=== PATIENT | female | born 1945 | race Hispanic/Latino ===

== ENCOUNTER 2018-08-10 10:02 | Inpatient (IN) | payer MEDICARE, MEDICAID ==
[2018-08-10 10:03] VITALS: BMI 39.4
[2018-08-10] MEDS ORDERED: Iohexol 240 (50 ml) PO ONE (10:32)
--- NOTE | 2018-08-10 10:35 | ED PDOC ---
HPI: Abdomen Time Seen by Provider: 08/10/18 10:19 Chief Complaint (Nursing): Abdominal Pain Chief Complaint (Provider): Abdominal pain History Per: Patient Additional Complaint(s): 73 yo female with a PMH of HTN, DM, Hyperlipidemia, Asthma, Gout, S/p lumbar laminectomy with L4/L5 fusion presents to ED with multiple somatic complaints. Pt reports difficulty urinating for 5-6 days. denies dysuria; however, reports dark, foul-smelling urine. No fever or chills. Pt also admits to 1 week of constipation. Notes training excessivly and hard stools. no melena or BRBPR. Lastly, Pt also c.o pain to right shoulder and b/l knees that increases with touch and movement for more than 6 months. PMD: Dr. Hernandez Past Medical History Reviewed: Historical Data, Nursing Documentation, Vital Signs Vital Signs: Last Vital Signs Temp 98.8 F 08/10/18 10:05 Pulse 98 H 08/10/18 10:05 Resp 20 08/10/18 10:05 BP 133/72 08/10/18 10:05 Pulse Ox 95 08/10/18 10:05 - Medical History PMH: Arthritis, Asthma, Back Problems, Bronchitis, COPD, Depression, Diabetes (Type II), Fractures (ankle), Gall Bladder Disease (gallstones removal), GERD, HTN, Hypercholesterolemia, Hypothyroidism, Pneumonia Denies: Alzheimer's Disease, Atrial Fibrillation, Cardia Arrhythmia, CHF, Crohn's Disease, Dementia, Diverticulitis, Emphysema, Gastritis, HIV, Kidney Stones, Migraine, Mitral Valve Prolapse, Multiple Sclerosis, Osteoporosis, Pancreatitis, Parkinson's Disease, Peripheral Edema, Pulmonary Embolism, Chronic Kidney Disease, Rheumatoid Arthritis, Seizures, Sleep Apnea, TIA - Surgical History Surgical History: Back Surgery (laminectomy 2 months [employer]), Cholecystectomy, C- Section Denies: Pacemaker - Family History Family History: States: Unknown Family Hx - Living Arrangements Living Arrangements: With Family - Social History Current smoker - smoking cessation education provided: No Alcohol: None Drugs: Denies - Home Medications Home Medications: Ambulatory Orders Medication Instructions Recorded Allopurinol [Zyloprim] 100 mg PO DAILY 08/10/18 Aspirin [Ecotrin] 81 mg PO DAILY 08/10/18 Budesonide/Formoterol Fumarate 2 puff IH Q12 08/10/18 [Symbicort 80-4.5 Mcg Inhaler] Ergocalciferol (Vitamin D2) 50,000 unit PO Q30D 08/10/18 [Vitamin D2] Escitalopram [Lexapro] 10 mg PO DAILY 08/10/18 Ferrous Sulfate [Feosol] 325 mg PO DAILY 08/10/18 Insulin Aspart, Recombinant 20 unit SC ACTID 08/10/18 [Novolog] Insulin Glargine, Recombina 50 unit SC HS 08/10/18 [Lantus] Levothyroxine [Synthroid] 150 mcg PO DAILY 08/10/18 Losartan [Cozaar] 100 mg PO DAILY 08/10/18 Montelukast [Singulair] 10 mg PO HS 08/10/18 Omeprazole 20 mg PO DAILY 08/10/18 Rosuvastatin Calcium [Crestor] 10 mg PO DAILY 08/10/18 - Allergies Allergies/Adverse Reactions: Allergies Allergy/AdvReac Type Severity Reaction Status Date / Time Penicillins Allergy SHORTNESS Verified 09/04/16 12:10 OF BREATH Review of Systems ROS Statement: Except As Marked, All Systems Reviewed And Found Negative Gastrointestinal: Positive for: Constipation Genitourinary Female: Positive for: Other (difficulty urinating, dark foul smelling urine) Physical Exam - Reviewed Nursing Documentation Reviewed: Yes Vital Signs Reviewed: Yes - Physical Exam Appears: Positive for: Well, Non-toxic, No Acute Distress Head Exam: Positive for: ATRAUMATIC, NORMAL INSPECTION, NORMOCEPHALIC Skin: Positive for: Normal Color, Warm, DRY Eye Exam: Positive for: EOMI, Normal appearance, PERRL ENT: Positive for: Normal ENT Inspection Neck: Positive for: Normal, Painless ROM Cardiovascular/Chest: Positive for: Regular Rate, Rhythm Respiratory: Positive for: CNT, Normal Breath Sounds Gastrointestinal/Abdominal: Positive for: Normal Exam, Soft Back: Positive for: Normal Inspection Extremity: Positive for: Normal ROM Neurologic/Psych: Positive for: Alert, Oriented - Laboratory Results Result Diagrams: 08/10/18 11:20 08/10/18 11:20 - ECG O2 Sat by Pulse Oximetry: 95 Medical Decision Making Medical Decision Making: IV access established and diagnostics ordered WBC 29.5 Pt also tachy at 96 Meets SIRS criteria remainder of labs reviewed. CT scan: IMPRESSION: Bilateral lower lobe infiltrates. Suspect bilateral lower lobe pneumonia. No other acute abnormality. Pt now meets Sepsis criteria Pt with PCN allery. IV Vanco and Levaquin started. Case discussed with ED MD. Arrangements made for admission. FP resident at bedside for admission. Disposition - Clinical Impression Clinical Impression: Sepsis, Pneumonia - Patient ED Disposition Is Patient to be Admitted: Yes - Disposition Disposition Time: 17:09 Condition: STABLE Forms: Cign[employer] (Setswana) - Pt Status Changed To: Hospital Disposition Of: Inpatient - Admit Certification Admit to Inpatient:: After my assessment, the patient will require hospitalization for at least two midnights. This is because of the severity of symptoms shown, intensity of services needed, and/or the medical risk in this patient being treated as an outpatient. - POA Present On Arrival: Poor Glycemic Control
[2018-08-10] MEDS ORDERED: Sodium Chloride 0.9% 1,000 ML IV STA ×2 (10:37)
[2018-08-10] MEDS ORDERED: Iohexol 240 (50 ml) ONE (10:46)
[2018-08-10 11:29] LABS: BASO # 0.1 K/uL (0.0-0.2); BASO % 0.5 % (0.0-2.0); EOS % 0.1 % (0.0-4.0); LYMPH # 1.3 K/uL (1.0-4.3); LYMPH % 4.4 % (20.0-40.0); MEAN CELL VOLUME 91.6 fl (81.0-99.0); MEAN CORPUSCULAR HGB CONC 32.8 g/dL (33.0-37.0); MEAN PLATELET VOLUME 11.3 fl (7.2-11.7); MONO # 4.2 K/uL (0.0-0.8); MONO % 14.3 % (0.0-10.0); NEUT # 23.8 K/uL (1.8-7.0); NEUT % 80.7 % (50.0-75.0); NRBC % 0.1 % (0.0-0.0); PLATELET COUNT 330 K/uL (130-400); RBC 3.65 Mil/uL (3.80-5.20); RED CELL DISTRIBUTION WIDTH 16.2 % (11.5-14.5); WHITE BLOOD COUNT 29.5 K/uL (4.8-10.8)
[2018-08-10 11:39] LABS: ALB/GLOB RATIO 1.2 (1.0-2.1); ALBUMIN 4.1 g/dL (3.5-5.0); CALCIUM 9.3 mg/dL (8.4-10.2)
[2018-08-10 11:51] LABS: TROPONIN I 0.015 ng/mL (0.00-0.120)
--- NOTE | 2018-08-10 12:28 | RAD ---
Date of service: 08/10/2018 PROCEDURE: CHEST RADIOGRAPH, 1 VIEW HISTORY: abdominal pain COMPARISON: 06/20/2015 FINDINGS: LUNGS: Clear. PLEURA: No pneumothorax or pleural fluid seen. CARDIOVASCULAR: Normal. OSSEOUS STRUCTURES: No significant abnormalities. VISUALIZED UPPER ABDOMEN: Normal. OTHER FINDINGS: None. IMPRESSION: No active disease.
[2018-08-10 12:46] LABS: ANISOCYTOSIS SLIGHT; LARGE PLATELETS PRESENT; LYMPHOCYTE 7 % (20-50); MONOCYTE 12 % (0-10); NEUTROPHIL 81 % (42-75); PLATELET ESTIMATE NORMAL (NORMAL); SPHEROCYTES SLIGHT; TEARDROP CELLS SLIGHT; TOTAL CELLS COUNTED 100
[2018-08-10 12:54] LABS: SQUAMOUS EPITHIAL < 1 /hpf (0-5); URINE BACTERIA RARE (<OCC); URINE BILIRUBIN NEGATIVE (NEGATIVE); URINE BLOOD MODERATE (NEGATIVE); URINE CLARITY CLOUDY (Clear); URINE COLOR YELLOW (YELLOW); URINE GLUCOSE (UA) >=500 mg/dL (Normal); URINE HYALINE CAST 0-2 /hpf (0-2); URINE LEUKOCYTE ESTERASE NEG Leu/uL (Negative); URINE PROTEIN 100 mg/dL (NEGATIVE); URINE UROBILINOGEN 0.2-1.0 mg/dL (0.2-1.0)
[2018-08-10] MEDS ORDERED: Ciprofloxacin 400mg/200ml D5W 400 MG/200 ML BAG IVPB STA (13:08)
[2018-08-10 13:55] LABS: VENOUS BLOOD GAS PCO2 42 mmHg (40-60); VENOUS BLOOD GAS PO2 40 mm/Hg (30-55); VENOUS BLOOD PH 7.34 (7.32-7.43)
[2018-08-10] MEDS ORDERED: Vancomycin 1 g Inj ONE (13:59)
[2018-08-10] MEDS ORDERED: Ciprofloxacin 400mg/200ml D5W 0 MG/0 ML BAG IVPB ONE (14:00)
--- NOTE | 2018-08-10 15:39 | CT ---
Date of service: 08/10/2018 PROCEDURE: CT Abdomen and Pelvis without intravenous contrast HISTORY: r/o obstruction COMPARISON: 08/20/2015 TECHNIQUE: Without contrast.. Contrast dose: 0 Radiation dose: Total exam DLP = 902.99 mGy-cm. This CT exam was performed using one or more of the following dose reduction techniques: Automated exposure control, adjustment of the mA and/or kV according to patient size, and/or use of iterative reconstruction technique. FINDINGS: LOWER THORAX: Bilateral lower lobe infiltrates. Suspicious for pneumonia. No pleural effusion. LIVER: Normal size and contour. Diffusely diminished attenuation consistent with fatty infiltration. No mass. No intrahepatic biliary ductal dilatation. GALLBLADDER AND BILE DUCTS: Status post cholecystectomy PANCREAS: Unremarkable. No gross lesion or ductal dilatation. SPLEEN: Unremarkable. ADRENALS: Unremarkable. No mass. KIDNEYS AND URETERS: No hydronephrosis or calculus. 1.4 cm stable right renal cortical cyst mid right kidney. VASCULATURE: Unremarkable. No aortic aneurysm. BOWEL: No bowel obstruction. Mild sigmoid diverticulosis without evidence of diverticulitis. APPENDIX: Unremarkable. Normal appendix. PERITONEUM: Unremarkable. No free fluid. No free air. LYMPH NODES: Unremarkable. No enlarged lymph nodes. BLADDER: Unremarkable. REPRODUCTIVE: Coarse calcifications in the uterine fundus likely degenerated calcified fibroids. BONES: No acute fracture. Posterior fixation at L4-5 with pedicle screws and rods. OTHER FINDINGS: None. IMPRESSION: Bilateral lower lobe infiltrates. Suspect bilateral lower lobe pneumonia. No other acute abnormality.
[2018-08-10] MEDS ORDERED: levoFLOXacin 750 mg in D5W 750 MG/150 ML BAG IVPB STA (16:14)
[2018-08-10] MEDS ORDERED: Insulin Regular 100 units/ml SC STA (16:20)
[2018-08-10] MEDS ORDERED: levoFLOXacin 750 mg in D5W 750 MG/150 ML BAG IVPB ONE (16:29)
--- NOTE | 2018-08-10 16:42 | CP.PCM.HP ---
<Codey Pope - Last Filed: 08/10/18 17:00> History of Present Illness - History of Present Illness History of Present Illness: CC: "Constipation with difficulty urinating" HPI: 73 y/o female with PMHx of HTN, DM II, Hyperlipidemia, Asthma, Gout, s/p lumbar laminectomy with L4/L5 fusion presents to the ED with complaints of constipation, which she states started 6-7 days ago. Patient reports associated discomfort, difficulty with urinating and a persistent cough for several days. Patient reports she has not eaten in 3-4 days due to the constipation. Patient denies a fever, nausea, vomiting, chest pain, dysuria. Patient denies any recent travel. PMD: Dr. Dave Hernandez PMHx: HTN, HLD, Asthma, Gout, PSHx: Lumbar Laminectomy, Cholecystecomy, Family History: History of Diabetes and Breast cancer Medications: see med reconciliation Social History: patient denies tobacco use, alcohol use or drug use Allergies: Penicillin ED Course Vitals Signs: Temp 98.8, Pulse Rate 98, BP 133/72, RR 20 CBC: 29.5>11.0/33.4<330, with left shift Neutrophils 81 BMP: 134/4.3/94/26/18/27/1.7<374 UA: negative CXR: no active disease as per final read CT Abd/Pelvis: bilateral lower lobe infiltrates, suspect pneumonia s/p Vancomycin 1 gm IV and Ciprofloxacin 400 mg IV s/p Levofloxacin 750 mg IV s/p IV Fluids Present on Admission - Present on Admission Any Indicators Present on Admission: Yes History of DVT/PE: No History of Uncontrolled Diabetes: Yes Urinary Catheter: No Decubitus Ulcer Present: No Review of Systems - Constitutional Constitutional: absent: Chills, Fever, Night Sweats - EENT Eyes: absent: Blurred Vision, Change in Vision Nose/Mouth/Throat: absent: Dysphagia - Cardiovascular Cardiovascular: Dyspnea on Exertion. absent: Chest Pain, Lightheadedness - Respiratory Respiratory: Cough, Pain with Coughing - Gastrointestinal Gastrointestinal: Constipation. absent: Nausea, Vomiting - Genitourinary Genitourinary: Difficulty Urinating. absent: Dysuria, Urinary Frequency, Urinary Urgency - Musculoskeletal Musculoskeletal: Radiating Pain into Limb. absent: Numbness, Tingling - Neurological Neurological: Weakness. absent: Numbness, Tingling Past Patient History - Infectious Disease Hx of Infectious Diseases: None - Past Medical History & Family History Past Medical History?: Yes - Past Social History Smoking Status: Former Smoker Chewing Tobacco Use: No Cigar Use: No Alcohol: None Drugs: Denies Home Situation {Lives}: Alone - CARDIAC Hx Atrial Fibrillation: No Hx Cardia Arrhythmia: No Hx Congestive Heart Failure: No Hx Hypercholesterolemia: Yes Hx Hypertension: Yes Hx Mitral Valve Prolapse: No Hx Pacemaker: No Hx Peripheral Edema: No - PULMONARY Hx Asthma: Yes Hx Bronchitis: Yes Hx Chronic Obstructive Pulmonary Disease (COPD): Yes Hx Emphysema: No Hx Pneumonia: Yes Hx Pulmonary Embolism: No Hx Sleep Apnea: No - NEUROLOGICAL Hx Alzheimer's Disease: No Hx Dementia: No Hx Migraine: No Hx Multiple Sclerosis: No Hx Parkinson's Disease: No Hx Seizures: No Hx Transient Ischemic Attacks (TIA): No - HEENT Hx HEENT Problems: No Hx Blind: No Hx Cataracts: No Hx Deafness: No Hx Difficulty Chewing: No Hx Epistaxis: No Hx Glaucoma: No Hx Macular Degeneration: No - RENAL Hx Chronic Kidney Disease: No Hx Kidney Stones: No - ENDOCRINE/METABOLIC Hx Hypothyroidism: Yes - HEMATOLOGICAL/ONCOLOGICAL Hx Human Immunodeficiency Virus (HIV): No - INTEGUMENTARY Hx Dermatological Problems: No - MUSCULOSKELETAL/RHEUMATOLOGICAL Hx Arthritis: Yes Hx Fractures: Yes (ankle) Hx Osteoporosis: No Hx Rheumatoid Arthritis: No - GASTROINTESTINAL Hx Crohn's Disease: No Hx Diverticulitis: No Hx Gall Bladder Disease: Yes (gallstones removal) Hx Gastritis: No Hx Pancreatitis: No - GENITOURINARY/GYNECOLOGICAL Hx Genitourinary Disorders: No - PSYCHIATRIC Hx Depression: Yes - SURGICAL HISTORY Hx Cholecystectomy: Yes - ANESTHESIA Hx Anesthesia: Yes Hx Anesthesia Reactions: No Hx Malignant Hyperthermia: No Meds Allergies/Adverse Reactions: Allergies Allergy/AdvReac Type Severity Reaction Status Date / Time Penicillins Allergy SHORTNESS Verified 09/04/16 12:10 OF BREATH Physical Exam - Constitutional Appears: Well, Non-toxic, No Acute Distress - Head Exam Head Exam: ATRAUMATIC, NORMOCEPHALIC - Eye Exam Eye Exam: Normal appearance, PERRL - ENT Exam ENT Exam: Mucous Membranes Dry - Neck Exam Neck exam: Positive for: Full Rom. Negative for: Lymphadenopathy, Meningismus - Respiratory Exam Respiratory Exam: Decreased Breath Sounds, Rales, Rhonchi - Cardiovascular Exam Cardiovascular Exam: REGULAR RHYTHM, RRR, +S1, +S2. absent: JVD - GI/Abdominal Exam GI & Abdominal Exam: Normal Bowel Sounds - Back Exam Back exam: NORMAL INSPECTION - Neurological Exam Neurological exam: Alert, Oriented x3 - Psychiatric Exam Psychiatric exam: Normal Affect, Normal Mood - Skin Skin Exam: Dry, Pallor Results - Vital Signs Recent Vital Signs: Last Vital Signs Temp 98.8 F 08/10/18 10:05 Pulse 98 H 08/10/18 10:05 Resp 20 08/10/18 10:05 BP 133/72 08/10/18 10:05 Pulse Ox 95 08/10/18 16:28 - Labs Result Diagrams: 08/10/18 11:20 08/10/18 11:20 Labs: Laboratory Results - last 24 hr 08/10/18 08/10/18 08/10/18 10:20 11:20 11:20 WBC 29.5 H D RBC 3.65 L Hgb 11.0 L Hct 33.4 L MCV 91.6 MCH 30.0 MCHC 32.8 L RDW 16.2 H Plt Count 330 D MPV 11.3 Neut % (Auto) 80.7 H Lymph % (Auto) 4.4 L [place] % (Auto) 14.3 H Eos % (Auto) 0.1 Baso % (Auto) 0.5 Neut # (Auto) 23.8 H Lymph # (Auto) 1.3 [place] # (Auto) 4.2 H Eos # (Auto) 0.0 Baso # (Auto) 0.1 Neutrophils % (Manual) 81 H Lymphocytes % (Manual) 7 L Monocytes % (Manual) 12 H Platelet Estimate Normal Large Platelets Present Anisocytosis (manual) Slight Macrocytosis (manual) Slight Spherocytes Slight Tear Drop Cells Slight pO2 VBG pH VBG pCO2 VBG HCO3 VBG Total CO2 VBG O2 Sat (Calc) VBG Base Excess VBG Potassium Glucose Lactate FiO2 Sodium 134 Potassium 4.3 Chloride 94 L Carbon Dioxide 26 Anion Gap 18 BUN 27 H Creatinine 1.7 H Est GFR ( Amer) 36 Est GFR (Non-Af Amer) 30 POC Glucose (mg/dL) 357 H Random Glucose 374 H Calcium 9.3 Total Bilirubin 1.6 H AST 30 ALT 34 Alkaline Phosphatase 65 Troponin I 0.0150 Total Protein 7.7 Albumin 4.1 Globulin 3.6 Albumin/Globulin Ratio 1.2 Amylase 50 Lipase 176 Venous Blood Potassium Urine Color Urine Clarity Urine pH Ur Specific [place] Urine Protein Urine Glucose (UA) Urine Ketones Urine Blood Urine Nitrate Urine Bilirubin Urine Urobilinogen Ur Leukocyte Esterase Urine RBC (Auto) Urine Microscopic WBC Ur Squamous Epith Cells Urine Bacteria Hyaline Casts 08/10/18 08/10/18 08/10/18 12:28 12:46 15:13 WBC RBC Hgb Hct MCV MCH MCHC RDW Plt Count MPV Neut % (Auto) Lymph % (Auto) [place] % (Auto) Eos % (Auto) Baso % (Auto) Neut # (Auto) Lymph # (Auto) [place] # (Auto) Eos # (Auto) Baso # (Auto) Neutrophils % (Manual) Lymphocytes % (Manual) Monocytes % (Manual) Platelet Estimate Large Platelets Anisocytosis (manual) Macrocytosis (manual) Spherocytes Tear Drop Cells pO2 40 VBG pH 7.34 VBG pCO2 42 VBG HCO3 22.0 VBG Total CO2 24.0 VBG O2 Sat (Calc) 77.7 H VBG Base Excess -3.0 L VBG Potassium 3.9 Glucose 382 H Lactate 1.2 FiO2 21.0 Sodium 129.0 L Potassium Chloride 95.0 L Carbon Dioxide Anion Gap BUN Creatinine Est GFR ( Amer) Est GFR (Non-Af Amer) POC Glucose (mg/dL) 313 H Random Glucose Calcium Total Bilirubin AST ALT Alkaline Phosphatase Troponin I Total Protein Albumin Globulin Albumin/Globulin Ratio Amylase Lipase Venous Blood Potassium 3.9 Urine Color Yellow Urine Clarity Cloudy Urine pH 6.0 Ur Specific [place] 1.013 Urine Protein 100 Urine Glucose (UA) >=500 Urine Ketones 20 Urine Blood Moderate Urine Nitrate Negative Urine Bilirubin Negative Urine Urobilinogen 0.2-1.0 Ur Leukocyte Esterase Neg Urine RBC (Auto) 1 Urine Microscopic WBC 2 Ur Squamous Epith Cells < 1 Urine Bacteria Rare Hyaline Casts 0-2 Assessment & Plan - Assessment and Plan (Free Text) Assessment: 72 y/o female with PMHx of Plan: 1) Bilateral Lower Lobe Infiltrates likely Pneumonia - - - - - 2) Constipation 3) Hypertension 4) Hyperlipidemia 5) Diabetes Type II 6) Asthma 7) Gout 8) DVT Prophylaxis 9) Diet 10) Code status - Date & Time Date: 08/10/18 Time: 16:58 <Temi Chavis - Last Filed: 08/10/18 18:05> Results - Vital Signs Recent Vital Signs: Last Vital Signs Temp 97.8 F 08/10/18 17:03 Pulse 87 08/10/18 17:03 Resp 16 08/10/18 17:03 BP 136/89 08/10/18 17:03 Pulse Ox 95 08/10/18 17:09 - Labs Result Diagrams: 08/10/18 11:20 08/10/18 11:20 Labs: Laboratory Results - last 24 hr 08/10/18 08/10/18 08/10/18 10:20 11:20 11:20 WBC 29.5 H D RBC 3.65 L Hgb 11.0 L Hct 33.4 L MCV 91.6 MCH 30.0 MCHC 32.8 L RDW 16.2 H Plt Count 330 D MPV 11.3 Neut % (Auto) 80.7 H Lymph % (Auto) 4.4 L [place] % (Auto) 14.3 H Eos % (Auto) 0.1 Baso % (Auto) 0.5 Neut # (Auto) 23.8 H Lymph # (Auto) 1.3 [place] # (Auto) 4.2 H Eos # (Auto) 0.0 Baso # (Auto) 0.1 Neutrophils % (Manual) 81 H Lymphocytes % (Manual) 7 L Monocytes % (Manual) 12 H Platelet Estimate Normal Large Platelets Present Anisocytosis (manual) Slight Macrocytosis (manual) Slight Spherocytes Slight Tear Drop Cells Slight pO2 VBG pH VBG pCO2 VBG HCO3 VBG Total CO2 VBG O2 Sat (Calc) VBG Base Excess VBG Potassium Glucose Lactate FiO2 Sodium 134 Potassium 4.3 Chloride 94 L Carbon Dioxide 26 Anion Gap 18 BUN 27 H Creatinine 1.7 H Est GFR ( Amer) 36 Est GFR (Non-Af Amer) 30 POC Glucose (mg/dL) 357 H Random Glucose 374 H Calcium 9.3 Total Bilirubin 1.6 H AST 30 ALT 34 Alkaline Phosphatase 65 Troponin I 0.0150 Total Protein 7.7 Albumin 4.1 Globulin 3.6 Albumin/Globulin Ratio 1.2 Amylase 50 Lipase 176 Venous Blood Potassium Urine Color Urine Clarity Urine pH Ur Specific [place] Urine Protein Urine Glucose (UA) Urine Ketones Urine Blood Urine Nitrate Urine Bilirubin Urine Urobilinogen Ur Leukocyte Esterase Urine RBC (Auto) Urine Microscopic WBC Ur Squamous Epith Cells Urine Bacteria Hyaline Casts 08/10/18 08/10/18 08/10/18 12:28 12:46 15:13 WBC RBC Hgb Hct MCV MCH MCHC RDW Plt Count MPV Neut % (Auto) Lymph % (Auto) [place] % (Auto) Eos % (Auto) Baso % (Auto) Neut # (Auto) Lymph # (Auto) [place] # (Auto) Eos # (Auto) Baso # (Auto) Neutrophils % (Manual) Lymphocytes % (Manual) Monocytes % (Manual) Platelet Estimate Large Platelets Anisocytosis (manual) Macrocytosis (manual) Spherocytes Tear Drop Cells pO2 40 VBG pH 7.34 VBG pCO2 42 VBG HCO3 22.0 VBG Total CO2 24.0 VBG O2 Sat (Calc) 77.7 H VBG Base Excess -3.0 L VBG Potassium 3.9 Glucose 382 H Lactate 1.2 FiO2 21.0 Sodium 129.0 L Potassium Chloride 95.0 L Carbon Dioxide Anion Gap BUN Creatinine Est GFR ( Amer) Est GFR (Non-Af Amer) POC Glucose (mg/dL) 313 H Random Glucose Calcium Total Bilirubin AST ALT Alkaline Phosphatase Troponin I Total Protein Albumin Globulin Albumin/Globulin Ratio Amylase Lipase Venous Blood Potassium 3.9 Urine Color Yellow Urine Clarity Cloudy Urine pH 6.0 Ur Specific [place] 1.013 Urine Protein 100 Urine Glucose (UA) >=500 Urine Ketones 20 Urine Blood Moderate Urine Nitrate Negative Urine Bilirubin Negative Urine Urobilinogen 0.2-1.0 Ur Leukocyte Esterase Neg Urine RBC (Auto) 1 Urine Microscopic WBC 2 Ur Squamous Epith Cells < 1 Urine Bacteria Rare Hyaline Casts 0-2 Assessment & Plan - Assessment and Plan (Free Text) Assessment: Assessment/Plan: 73 YO female with PMHx of HTN, DM II, Hyperlipidemia, Asthma, hypothyroidism, Gout, s/p lumbar laminectomy with L4/L5 fusion, hx of DVT is admitted for bilateral pneumonia. Bilateral Pneumonia -likely CAP -CT chest sig for bilateral pneumonia noted in the bases -Curb 65- 2; Moderate risk group: 6.8% 30-day mortality -s/p vanc and Levoflaxacin in ED -cont Levofloxacin -duonabc Q6 -follow up sputum cx, legionella and strep Sepsis -leukocytosis, tachycardia with pneumonia -bcx and ucx pending -cont IV abx -cont IVFs -follow up AM labs HTN -chronic, controlled -hold bp meds for now -follow up IDDM -on insulin at home -last HbA1c 05/2018 10.2 -cont home meds -medium coverage insulin Asthma -Mild persistent asthma -cont home meds Hypothyroidism -chronic -cont home meds Constipation -hold Fesol -start colace and Miralax DVT prophlx -Lovenox SC DNR Contact daughter Irena [phone]
--- NOTE | 2018-08-10 17:03 | CARD ---
APPROVED REPORT Date of service: 08/10/2018 EKG Measurement Heart [id number] <Conclusion> Normal sinus rhythm Normal ECG
[2018-08-10] MEDS ORDERED: Glucagon Recombinant 1 mg Inj IM PRN (17:20)
[2018-08-10] MEDS ORDERED: Dextrose 50% SYRINGE Inj (50 ml) IV PRN (17:20)
[2018-08-10] MEDS ORDERED: POLYETHYLENE GLYCOL 3350 17 GM/Dose PACKET PO PRN (17:23)
[2018-08-10] MEDS ORDERED: Albuterol-Ipratrop 3 mg / 0.5 (3 ml) UD INH PRN (17:30)
[2018-08-10] MEDS ORDERED: Sodium Chloride 3% for Inhalation 4 ML VIAL.NEB IH PRN (17:32)
[2018-08-10] MEDS ORDERED: Albuterol-Ipratrop 3 mg / 0.5 (3 ml) UD ONE (18:10)
[2018-08-10] MEDS ORDERED: Sodium Chloride 0.9% 1,000 ML IV SCH (18:30)
[2018-08-10] MEDS ORDERED: Insulin Regular 100 units/ml ONE (19:33)
[2018-08-10] MEDS: Insulin Regular 100 units/ml SC SCH (20:01)
[2018-08-10] MEDS: Fluticasone-Salmeterol 100-50mcg Diskus IH SCH (21:52)
[2018-08-10] MEDS: Insulin Detemir 100 Units/ml Inj SC SCH (21:56)
[2018-08-11 05:34] LABS: BASO # 0.1 K/uL (0.0-0.2); BASO % 0.3 % (0.0-2.0); EOS # 0.1 K/uL (0.0-0.7); EOS % 0.3 % (0.0-4.0); HEMOGLOBIN 9.2 g/dL (12.0-16.0); LYMPH # 1.3 K/uL (1.0-4.3); LYMPH % 5.6 % (20.0-40.0); MEAN CELL VOLUME 90.9 fl (81.0-99.0); MEAN CORPUSCULAR HEMOGLOBIN 30.3 pg (27.0-31.0); MEAN CORPUSCULAR HGB CONC 33.4 g/dL (33.0-37.0); MONO # 4.1 K/uL (0.0-0.8); MONO % 17.6 % (0.0-10.0); NEUT # 17.6 K/uL (1.8-7.0); NEUT % 76.2 % (50.0-75.0); RBC 3.02 Mil/uL (3.80-5.20); WHITE BLOOD COUNT 23.1 K/uL (4.8-10.8)
[2018-08-11] MEDS: Levothyroxine 150 MCG TAB PO SCH (06:46)
[2018-08-11] MEDS: Insulin Regular 100 units/ml SC SCH ×4 (06:47→22:07)
[2018-08-11] MEDS ORDERED: Influenza Vaccine (5 YR UP)/PF 60 MCG/0.5 ML SYR IM ONE (09:00)
--- NOTE | 2018-08-11 09:08 | CP.PCM.PN ---
Subjective - Date & Time of Evaluation Date of Evaluation: 08/11/18 Time of Evaluation: 09:00 - Subjective Subjective: 73 y/o female with PMHx of HTN, DM II, Hyperlipidemia, Asthma, Gout, s/p lumbar laminectomy with L4/L5 fusion presents to the ED with complaints of dizziness yesterday, cough for several days, urinary retention, and constipation for 6-7 days. Patient reports she has not eaten in 3-4 days due to the constipation. Today pt complains of fever overnight, persistent cough, SOB at rest, B/L rib pain, denies sputum production. She has a decreased appetite, passed a bowel movement, has no issues with urinary retention. Denies chest pain, dysuria, hematuria, nausea or vomiting. Objective - Vital Signs/Intake and Output Vital Signs (last 24 hours): Temp Pulse Resp BP Pulse Ox 98.6 F 76 18 109/55 L 96 08/11/18 08:00 08/11/18 08:00 08/11/18 08:00 08/11/18 08:00 08/11/18 08:00 - Medications Medications: Current Medications Acetaminophen (Tylenol 325mg Tab) 650 mg PO Q6 PRN PRN Reason: Fever >100.4 F Last Admin: 08/11/18 00:25 Dose: 650 mg Albuterol/Ipratropium (Duoneb 3 Mg/0.5 Mg (3 Ml) Ud) 3 ml INH RQ6 PRN PRN Reason: Shortness of Breath Last Admin: 08/10/18 18:13 Dose: 3 ml Aspirin (Ecotrin) 81 mg PO DAILY KEON Atorvastatin Calcium (Lipitor) 20 mg PO HS KEON Last Admin: 08/10/18 22:49 Dose: 20 mg Dextrose (Dextrose 50% Inj) 0 ml IV STAT PRN; Protocol PRN Reason: Hypoglycemia Protocol Dextrose (Glutose 15) 0 gm PO ONCE PRN; Protocol PRN Reason: Hypoglycemia Protocol Docusate Sodium (Colace) 100 mg PO DAILY KEON Enoxaparin Sodium (Lovenox) 40 mg SC DAILY KEON; Protocol Glucagon (Glucagen Diagnostic Kit) 0 mg IM STAT PRN; Protocol PRN Reason: Hypoglycemia Protocol Levofloxacin/Dextrose (Levaquin 750mg) 750 mg in 150 mls @ 100 mls/hr IVPB Q48H [facility]ON; Protocol Ibuprofen (Motrin Tab) 400 mg PO Q6 PRN PRN Reason: Fever >100.4 F Insulin Detemir (Levemir) 50 units SC HS [facility] Last Admin: 08/10/18 21:56 Dose: 50 u Insulin Human Lispro (Humalog) 20 units SC ACTID [facility] Insulin Human Regular (Humulin R) 0 units SC ACHS [facility]; Protocol Last Admin: 08/11/18 06:47 Dose: 4 unit Levothyroxine Sodium (Synthroid) 150 mcg PO DAILY@0630 [facility] Last Admin: 08/11/18 06:46 Dose: 150 mcg Montelukast Sodium (Singulair) 10 mg PO HS [facility] Last Admin: 08/10/18 21:54 Dose: 10 mg Polyethylene Glycol (Miralax) 17 gm PO DAILY PRN PRN Reason: Constipation Last Admin: 08/10/18 22:53 Dose: 17 gm Fluticasone/Salmeterol (Advair Diskus 100/50) 1 puff IH Q12 [facility] Last Admin: 08/10/18 21:52 Dose: 1 puff - Labs Labs: 08/11/18 04:20 08/11/18 04:20 - Constitutional Appears: Non-toxic, No Acute Distress - Head Exam Head Exam: ATRAUMATIC, NORMAL INSPECTION, NORMOCEPHALIC - Eye Exam Eye Exam: EOMI, Normal appearance, PERRL - ENT Exam ENT Exam: Mucous Membranes Moist - Respiratory Exam Respiratory Exam: Decreased Breath Sounds Additional comments: + B/L diffuse rales, No wheezes, No egophony - Cardiovascular Exam Cardiovascular Exam: RRR, +S1, +S2 - GI/Abdominal Exam GI & Abdominal Exam: Soft, Normal Bowel Sounds - Extremities Exam Extremities Exam: Normal Inspection - Neurological Exam Neurological Exam: Alert, Awake, Oriented x3 Assessment and Plan - Assessment and Plan (Free Text) Assessment: 73 yo female with PMHx of HTN, DM II, Hyperlipidemia, Asthma, hypothyroidism, Gout, s/p lumbar laminectomy with L4/L5 fusion, hx of DVT is admitted for bilateral pneumonia. 1. Bilateral Pneumonia -likely CAP -CT chest sig for bilateral pneumonia noted in the bases -Curb 65- 2; Moderate risk group: 6.8% 30-day mortality -Levofloxacin 750mg @100mls/hr Q24h -Legionella and influenza negative -Discontinued vanc and cipro -Duoneb Q4hr, Advair Q12 -Lidoderm patch, Tramadol 50mg [id number] pain -Promethazine Hcl/Codeine syrup 10ml PO Q6 PRN -Mucinex 600mg Q12 -IVF NS @150ml -F/u CBC, CMP, mycobacterium cx, blood cx, sputum cx, strep pnemoniae, procalcitonin in AM 2. Sepsis -leukocytosis 23.1 down from 29.5, tachycardia now resolved 76 -Urine Cx- no growth -bcx pending -cont IV abx -cont IVFs -Bp meds held pt was septic, will monitor 3. HTN -chronic, controlled -hold bp meds due to sepsis for now BP 139/64 -continue to monitor 4. IDDM -on insulin at home -last HbA1c 05/2018 10.2 -cont home meds -Levemir 50u HS, Lispro 20u ACTID, Humulin R ACHS -Diabetic diet 5. Asthma -Mild persistent asthma -Duoneb, Singulair, Advair -Pt requesting at home nebulizer 6. Hypothyroidism -chronic -cont Synthroid 150mcg QD 7. Constipation -hold Fesol -Given Miralax, declined colace 8. Hyperlipidemia -Atorvastatin 20mg HS 9. DVT prophlx -Lovenox 40mg SC 10. Code Status -DNR Contact daughter Irena [phone]
[2018-08-11] MEDS: Fluticasone-Salmeterol 100-50mcg Diskus IH SCH ×2 (09:35→22:09)
[2018-08-11] MEDS: Enoxaparin 40 mg Syringe SC SCH (09:37)
[2018-08-11] MEDS: Insulin Lispro (humaLOG) 100 Units/ml Inj SC SCH ×3 (09:47→16:50)
[2018-08-11] MEDS ORDERED: Oxycodone/Acetaminophen 5/325 mg Tab PO PRN (10:13)
[2018-08-11] MEDS: Lidocaine 5% Patch TD SCH (11:54)
[2018-08-11] MEDS ORDERED: Promethazine/Cod 6.25mg-10mg/5ml Syr UD PO PRN (11:59)
[2018-08-11] MEDS: Albuterol-Ipratrop 3 mg / 0.5 (3 ml) UD INH SCH ×5 (13:29→23:43)
[2018-08-11] MEDS: Sodium Chloride 0.9% 1,000 ML IV SCH ×2 (13:56→19:35)
[2018-08-11] MEDS: levoFLOXacin 750 mg in D5W 750 MG/150 ML BAG IVPB SCH (16:47)
[2018-08-11] MEDS: guaiFENesin 600 mg ER Tab PO SCH (22:08)
[2018-08-11] MEDS: Insulin Detemir 100 Units/ml Inj SC SCH (22:09)
[2018-08-12] MEDS: Sodium Chloride 0.9% 1,000 ML IV SCH ×3 (01:29→22:38)
[2018-08-12] MEDS: Albuterol-Ipratrop 3 mg / 0.5 (3 ml) UD INH SCH ×3 (05:12→11:00)
[2018-08-12] MEDS: Levothyroxine 150 MCG TAB PO SCH (05:32)
[2018-08-12 07:39] LABS: BASO % 0.1 % (0.0-2.0); EOS # 0.1 K/uL (0.0-0.7); EOS % 0.6 % (0.0-4.0); HEMOGLOBIN 8.6 g/dL (12.0-16.0); LYMPH # 1.2 K/uL (1.0-4.3); LYMPH % 6.9 % (20.0-40.0); MEAN CORPUSCULAR HEMOGLOBIN 29.7 pg (27.0-31.0); MEAN CORPUSCULAR HGB CONC 32.7 g/dL (33.0-37.0); MEAN PLATELET VOLUME 10.3 fl (7.2-11.7); MONO % 17.5 % (0.0-10.0); NEUT # 12.7 K/uL (1.8-7.0); NEUT % 74.9 % (50.0-75.0); RBC 2.88 Mil/uL (3.80-5.20); RED CELL DISTRIBUTION WIDTH 16.1 % (11.5-14.5)
[2018-08-12 08:14] LABS: ALBUMIN 3.1 g/dL (3.5-5.0); CALCIUM 7.2 mg/dL (8.4-10.2)
[2018-08-12] MEDS ORDERED: levoFLOXacin 750 mg in D5W 750 MG/150 ML BAG IVPB SCH (09:00)
[2018-08-12] MEDS: Fluticasone-Salmeterol 100-50mcg Diskus IH SCH ×2 (09:29→21:43)
[2018-08-12] MEDS: Insulin Lispro (humaLOG) 100 Units/ml Inj SC SCH ×3 (09:31→18:27)
[2018-08-12] MEDS: Insulin Regular 100 units/ml SC SCH ×4 (09:34→21:42)
[2018-08-12] MEDS: Lidocaine 5% Patch TD SCH (09:35)
[2018-08-12] MEDS: Enoxaparin 40 mg Syringe SC SCH (09:36)
[2018-08-12] MEDS: guaiFENesin 600 mg ER Tab PO SCH ×2 (09:39→21:44)
--- NOTE | 2018-08-12 11:31 | CP.PCM.PN ---
<Cindy Bellamy - Last Filed: 08/12/18 11:36> Subjective - Date & Time of Evaluation Date of Evaluation: 08/12/18 Time of Evaluation: 07:15 - Subjective Subjective: Patient seen and examined bedside. No tachypnea noted. reports improvement with Duoneb. On levaquin daily. afebrile. vs stable Objective - Vital Signs/Intake and Output Vital Signs (last 24 hours): Temp Pulse Resp BP Pulse Ox 98.2 F 88 18 117/67 95 08/12/18 08:19 08/12/18 09:00 08/12/18 08:19 08/12/18 08:19 08/12/18 08:19 - Medications Medications: Current Medications Acetaminophen (Tylenol 325mg Tab) 650 mg PO Q6 PRN PRN Reason: Fever >100.4 F Last Admin: 08/11/18 00:25 Dose: 650 mg Albuterol/Ipratropium (Duoneb 3 Mg/0.5 Mg (3 Ml) Ud) 3 ml INH RQ4 [facility] Last Admin: 08/12/18 11:00 Dose: 3 ml Aspirin (Ecotrin) 81 mg PO DAILY [facility]ON Last Admin: 08/12/18 09:31 Dose: 81 mg Atorvastatin Calcium (Lipitor) 20 mg PO HS [facility] Last Admin: 08/11/18 22:08 Dose: 20 mg Dextrose (Dextrose 50% Inj) 0 ml IV STAT PRN; Protocol PRN Reason: Hypoglycemia Protocol Dextrose (Glutose 15) 0 gm PO ONCE PRN; Protocol PRN Reason: Hypoglycemia Protocol Docusate Sodium (Colace) 100 mg PO DAILY KEON Last Admin: 08/12/18 09:29 Dose: Not Given Enoxaparin Sodium (Lovenox) 40 mg SC DAILY [facility]; Protocol Last Admin: 08/12/18 09:36 Dose: 40 mg Glucagon (Glucagen Diagnostic Kit) 0 mg IM STAT PRN; Protocol PRN Reason: Hypoglycemia Protocol Guaifenesin (Mucinex La) 600 mg PO Q12 [facility] Last Admin: 08/12/18 09:39 Dose: 600 mg Levofloxacin/Dextrose (Levaquin 750mg) 750 mg in 150 mls @ 100 mls/hr IVPB Q24H [facility]; Protocol Last Admin: 08/11/18 16:47 Dose: 100 mls/hr Sodium Chloride (Sodium Chloride 0.9%) 1,000 mls @ 100 mls/hr IV .Q10H [facility] Stop: 08/14/18 09:01 Last Admin: 08/12/18 09:47 Dose: 100 mls/hr Ibuprofen (Motrin Tab) 400 mg PO Q6 PRN PRN Reason: Fever >100.4 F Insulin Detemir (Levemir) 50 units SC HS [facility] Last Admin: 08/11/18 22:09 Dose: 50 u Insulin Human Lispro (Humalog) 20 units SC ACTID [facility] Last Admin: 08/12/18 11:18 Dose: 20 units Insulin Human Regular (Humulin R) 0 units SC ACHS [facility]; Protocol Last Admin: 08/12/18 11:15 Dose: 6 unit Levothyroxine Sodium (Synthroid) 150 mcg PO DAILY@0630 [facility] Last Admin: 08/12/18 05:32 Dose: 150 mcg Lidocaine (Lidoderm) 1 ea TD DAILY [facility] Last Admin: 08/12/18 09:35 Dose: Not Given Montelukast Sodium (Singulair) 10 mg PO [facility] Last Admin: 08/11/18 22:08 Dose: 10 mg Polyethylene Glycol (Miralax) 17 gm PO DAILY PRN PRN Reason: Constipation Last Admin: 08/10/18 22:53 Dose: 17 gm Promethazine HCl/Codeine (Phenergan/Codeine Oral Syrup) 10 ml PO Q6 PRN PRN Reason: Cough Last Admin: 08/11/18 13:20 Dose: 10 ml Fluticasone/Salmeterol (Advair Diskus 100/50) 1 puff IH Q12 [facility] Last Admin: 08/12/18 09:29 Dose: 1 puff Tramadol HCl (Ultram) 50 mg PO Q6 PRN PRN Reason: Pain, severe (8-10) Last Admin: 08/11/18 22:22 Dose: 50 mg - Labs Labs: 08/12/18 06:00 08/12/18 06:00 - Constitutional Appears: Non-toxic, No Acute Distress - Eye Exam Eye Exam: Normal appearance - Respiratory Exam Respiratory Exam: Rales. absent: Rhonchi Additional comments: bibasal scattered rales. - Cardiovascular Exam Cardiovascular Exam: REGULAR RHYTHM, +S1, +S2 - GI/Abdominal Exam GI & Abdominal Exam: Soft, Normal Bowel Sounds - Neurological Exam Neurological Exam: Alert, Awake - Skin Skin Exam: Intact Assessment and Plan - Assessment and Plan (Free Text) Plan: 73 yo female with PMHx of HTN, DM II, Hyperlipidemia, Asthma, hypothyroidism, Gout, s/p lumbar laminectomy with L4/L5 fusion, hx of DVT is admitted for bilateral pneumonia improving wiht levaquin qd. 1. Bilateral Pneumonia -CAP -CT chest sig for bilateral pneumonia noted in the bases -Curb 65- 2; Moderate risk group: 6.8% 30-day mortality -c/w Levofloxacin 750mg @100mls/hr Q24h -Legionella and influenza negative -Duoneb Q4hr, Advair Q12 -Lidoderm patch, Tramadol 50mg [id number] pain -Promethazine Hcl/Codeine syrup 10ml PO Q6 PRN -Mucinex 600mg Q12 -IVF NS @ 100 -wbc trending down, blood cx , urine cx no growth -f/u mycobacterium cx 2. Sepsis -2/2 CAP resolving -cont IV abx -cont IVFs -Bp meds held pt was septic, will monitor 3. HTN -chronic, controlled -hold bp meds due to sepsis for now BP 139/64 -continue to monitor 4. IDDM -on insulin at home -last HbA1c 05/2018 10.2 -cont home meds -Levemir 50u HS, Lispro 20u ACTID, Humulin R ACHS -Diabetic diet 5. Asthma -Mild persistent asthma -Duoneb, Singulair, Advair -Pt requesting at home nebulizer 6. Hypothyroidism -chronic -cont Synthroid 150mcg QD 7. Constipation -hold Fesol -Given Miralax, declined colace 8. Hyperlipidemia -Atorvastatin 20mg HS 9. DVT prophlx -Lovenox 40mg SC 10. Code Status -DNR Contact daughter Irena [phone] <Aisha Nichols - Last Filed: 08/12/18 12:44> Objective - Vital Signs/Intake and Output Vital Signs (last 24 hours): Temp Pulse Resp BP Pulse Ox 98.6 F 96 H 18 134/64 97 08/12/18 12:15 08/12/18 12:15 08/12/18 12:15 08/12/18 12:15 08/12/18 12:15 - Medications Medications: Current Medications Acetaminophen (Tylenol 325mg Tab) 650 mg PO Q6 PRN PRN Reason: Fever >100.4 F Last Admin: 08/11/18 00:25 Dose: 650 mg Al Hydrox/Mg Hydrox/Simethicone (Maalox Plus 30 Ml) 30 ml PO ONCE ONE Stop: 08/12/18 12:27 Albuterol/Ipratropium (Duoneb 3 Mg/0.5 Mg (3 Ml) Ud) 3 ml INH Q6H PRN PRN Reason: Shortness of Breath Aspirin (Ecotrin) 81 mg PO DAILY [facility] Last Admin: 08/12/18 09:31 Dose: 81 mg Atorvastatin Calcium (Lipitor) 20 mg PO HS [facility] Last Admin: 08/11/18 22:08 Dose: 20 mg Dextrose (Dextrose 50% Inj) 0 ml IV STAT PRN; Protocol PRN Reason: Hypoglycemia Protocol Dextrose (Glutose 15) 0 gm PO ONCE PRN; Protocol PRN Reason: Hypoglycemia Protocol Docusate Sodium (Colace) 100 mg PO DAILY [facility] Last Admin: 08/12/18 09:29 Dose: Not Given Enoxaparin Sodium (Lovenox) 40 mg SC DAILY [facility]; Protocol Last Admin: 08/12/18 09:36 Dose: 40 mg Glucagon (Glucagen Diagnostic Kit) 0 mg IM STAT PRN; Protocol PRN Reason: Hypoglycemia Protocol Guaifenesin (Mucinex La) 600 mg PO Q12 [facility] Last Admin: 08/12/18 09:39 Dose: 600 mg Levofloxacin/Dextrose (Levaquin 750mg) 750 mg in 150 mls @ 100 mls/hr IVPB Q24H [facility]; Protocol Last Admin: 08/11/18 16:47 Dose: 100 mls/hr Sodium Chloride (Sodium Chloride 0.9%) 1,000 mls @ 100 mls/hr IV .Q10H [facility] Stop: 08/14/18 09:01 Last Admin: 08/12/18 09:47 Dose: 100 mls/hr Ibuprofen (Motrin Tab) 400 mg PO Q6 PRN PRN Reason: Fever >100.4 F Insulin Detemir (Levemir) 50 units SC HS [facility] Last Admin: 08/11/18 22:09 Dose: 50 u Insulin Human Lispro (Humalog) 20 units SC ACTID [facility] Last Admin: 08/12/18 11:18 Dose: 20 units Insulin Human Regular (Humulin R) 0 units SC ACHS [facility]; Protocol Last Admin: 08/12/18 11:15 Dose: 6 unit Levothyroxine Sodium (Synthroid) 150 mcg PO DAILY@0630 [facility] Last Admin: 08/12/18 05:32 Dose: 150 mcg Lidocaine (Lidoderm) 1 ea TD DAILY [facility] Last Admin: 08/12/18 09:35 Dose: Not Given Montelukast Sodium (Singulair) 10 mg PO HS [facility] Last Admin: 08/11/18 22:08 Dose: 10 mg Polyethylene Glycol (Miralax) 17 gm PO DAILY PRN PRN Reason: Constipation Last Admin: 08/10/18 22:53 Dose: 17 gm Promethazine HCl/Codeine (Phenergan/Codeine Oral Syrup) 10 ml PO Q6 PRN PRN Reason: Cough Last Admin: 08/11/18 13:20 Dose: 10 ml Fluticasone/Salmeterol (Advair Diskus 100/50) 1 puff IH Q12 [facility] Last Admin: 08/12/18 09:29 Dose: 1 puff Tramadol HCl (Ultram) 50 mg PO Q6 PRN PRN Reason: Pain, severe (8-10) Last Admin: 08/11/18 22:22 Dose: 50 mg - Labs Labs: 08/12/18 06:00 08/12/18 06:00 Attending/Attestation - Attestation I have personally seen and examined this patient.: Yes I have fully participated in the care of the patient.: Yes I have reviewed all pertinent clinical information, including history, physical exam and plan: Yes Notes (Text): 08/12/18 12:43 agree with findings and plan as above. patient doing well, afebrile, wbc trending down nicely. patient likely stable for discharge home tomorrow on PO abx. patient + NAY. will continue to hydrate and recheck bmp tomorrow.
[2018-08-12] MEDS ORDERED: Albuterol-Ipratrop 3 mg / 0.5 (3 ml) UD INH PRN (11:40)
[2018-08-12] MEDS ORDERED: Alum-Mag Hydrox-Simethicone Susp (30 mL) PO ONE (12:26)
[2018-08-12] MEDS ORDERED: Pantoprazole 20 mg EC Tab PO STA (16:13)
[2018-08-12] MEDS: levoFLOXacin 750 mg in D5W 750 MG/150 ML BAG IVPB SCH (17:44)
[2018-08-12] MEDS: Insulin Detemir 100 Units/ml Inj SC SCH (21:44)
[2018-08-13 02:38] VITALS: O2SAT 96
[2018-08-13] MEDS: Insulin Regular 100 units/ml SC SCH ×2 (06:48→12:52)
[2018-08-13] MEDS: Levothyroxine 150 MCG TAB PO SCH (06:49)
[2018-08-13] MEDS: Sodium Chloride 0.9% 1,000 ML IV SCH (07:01)
[2018-08-13 07:30] LABS: BASO % 0.2 % (0.0-2.0); EOS # 0.1 K/uL (0.0-0.7); EOS % 0.5 % (0.0-4.0); HEMOGLOBIN 9.1 g/dL (12.0-16.0); LYMPH # 1.6 K/uL (1.0-4.3); LYMPH % 11.1 % (20.0-40.0); MEAN CELL VOLUME 91.1 fl (81.0-99.0); MEAN CORPUSCULAR HEMOGLOBIN 30.1 pg (27.0-31.0); MEAN PLATELET VOLUME 10.1 fl (7.2-11.7); MONO # 1.9 K/uL (0.0-0.8); MONO % 13.2 % (0.0-10.0); NEUT # 11.1 K/uL (1.8-7.0); RBC 3.02 Mil/uL (3.80-5.20); RED CELL DISTRIBUTION WIDTH 16.1 % (11.5-14.5); WHITE BLOOD COUNT 14.7 K/uL (4.8-10.8)
[2018-08-13 07:37] LABS: ALBUMIN 3.3 g/dL (3.5-5.0)
[2018-08-13 08:11] VITALS: RESP 18
[2018-08-13] MEDS: Fluticasone-Salmeterol 100-50mcg Diskus IH SCH (08:33)
[2018-08-13] MEDS: Insulin Lispro (humaLOG) 100 Units/ml Inj SC SCH ×2 (08:35→12:52)
[2018-08-13] MEDS: Lidocaine 5% Patch TD SCH (08:38)
[2018-08-13] MEDS: Enoxaparin 40 mg Syringe SC SCH (08:38)
[2018-08-13] MEDS: guaiFENesin 600 mg ER Tab PO SCH (08:40)
--- NOTE | 2018-08-13 09:21 | CP.PCM.DIS ---
<Isabelle Maddox - Last Filed: 08/13/18 14:52> Provider - Provider Date of Admission: 08/10/18 17:09 Attending physician: Dave Hernandez MD Primary care physician: Dr. Dave Hernandez Time Spent in preparation of Discharge (in minutes): 20 Diagnosis - Discharge Diagnosis (1) Pneumonia Status: Acute Comment: -Hemodynamically stable for D/c. -Continue abx as outpt Levaquin 1tab PO #5. -Continue Mucinex as outpt. -F/u with Dr. Hernandez Aug 15 1pm (2) Sepsis Status: Acute Comment: -Hemodynamically stable, afebrile. -Resolved (3) Constipation Status: Acute Comment: -Resolved Hospital Course - Lab Results Lab Results: Micro Results 08/10/18 13:30 Blood Blood Culture - Preliminary NO GROWTH AFTER 48 HOURS 08/10/18 13:00 Blood Blood Culture - Preliminary NO GROWTH AFTER 48 HOURS 08/10/18 14:05 Urine,Clean Catch Urine Culture - Final No Growth (<1,000 CFU/ML) Most Recent Lab Values WBC 14.7 K/uL (4.8-10.8) H 08/13/18 06:30 RBC 3.02 Mil/uL (3.80-5.20) L 08/13/18 06:30 Hgb 9.1 g/dL (12.0-16.0) L 08/13/18 06:30 Hct 27.5 % (34.0-47.0) L 08/13/18 06:30 MCV 91.1 fl (81.0-99.0) 08/13/18 06:30 MCH 30.1 pg (27.0-31.0) 08/13/18 06:30 MCHC 33.0 g/dL (33.0-37.0) 08/13/18 06:30 RDW 16.1 % (11.5-14.5) H 08/13/18 06:30 Plt Count 277 K/uL (130-400) 08/13/18 06:30 MPV 10.1 fl (7.2-11.7) 08/13/18 06:30 Neut % (Auto) 75.0 % (50.0-75.0) 08/13/18 06:30 Lymph % (Auto) 11.1 % (20.0-40.0) L 08/13/18 06:30 [place] % (Auto) 13.2 % (0.0-10.0) H 08/13/18 06:30 Eos % (Auto) 0.5 % (0.0-4.0) 08/13/18 06:30 Baso % (Auto) 0.2 % (0.0-2.0) 08/13/18 06:30 Neut # (Auto) 11.1 K/uL (1.8-7.0) H 08/13/18 06:30 Lymph # (Auto) 1.6 K/uL (1.0-4.3) 08/13/18 06:30 [place] # (Auto) 1.9 K/uL (0.0-0.8) H 08/13/18 06:30 Eos # (Auto) 0.1 K/uL (0.0-0.7) 08/13/18 06:30 Baso # (Auto) 0.0 K/uL (0.0-0.2) 08/13/18 06:30 Neutrophils % (Manual) 81 % (42-75) H 08/10/18 11:20 Lymphocytes % (Manual) 7 % (20-50) L 08/10/18 11:20 Monocytes % (Manual) 12 % (0-10) H 08/10/18 11:20 Platelet Estimate Normal (NORMAL) 08/10/18 11:20 Large Platelets Present 08/10/18 11:20 Anisocytosis (manual) Slight 08/10/18 11:20 Macrocytosis (manual) Slight 08/10/18 11:20 Spherocytes Slight 08/10/18 11:20 Tear Drop Cells Slight 08/10/18 11:20 pO2 40 mm/Hg (30-55) 08/10/18 12:46 VBG pH 7.34 (7.32-7.43) 08/10/18 12:46 VBG pCO2 42 mmHg (40-60) 08/10/18 12:46 VBG HCO3 22.0 mmol/L 08/10/18 12:46 VBG Total CO2 24.0 mmol/L (22-28) 08/10/18 12:46 VBG O2 Sat (Calc) 77.7 % (40-65) H 08/10/18 12:46 VBG Base Excess -3.0 mmol/L (0.0-2.0) L 08/10/18 12:46 VBG Potassium 3.9 mmol/L (3.6-5.2) 08/10/18 12:46 Sodium 129.0 mmol/L (132-148) L 08/10/18 12:46 Chloride 95.0 mmol/L (98-107) L 08/10/18 12:46 Glucose 382 mg/dL (65-105) H 08/10/18 12:46 Lactate 1.2 mmol/L (0.7-2.1) 08/10/18 12:46 FiO2 21.0 % 08/10/18 12:46 Sodium 141 mmol/l (132-148) 08/13/18 06:30 Potassium 4.1 MMOL/L (3.6-5.0) 08/13/18 06:30 Chloride 108 mmol/L (98-107) H 08/13/18 06:30 Carbon Dioxide 26 mmol/L (22-30) 08/13/18 06:30 Anion Gap 11 (10-20) 08/13/18 06:30 BUN 21 mg/dl (7-17) H 08/13/18 06:30 Creatinine 1.4 mg/dl (0.7-1.2) H 08/13/18 06:30 Est GFR ( Amer) 45 08/13/18 06:30 Est GFR (Non-Af Amer) 37 08/13/18 06:30 POC Glucose (mg/dL) 120 mg/dL (65-110) H 08/12/18 17:41 Random Glucose 173 mg/dL (65-105) H 08/13/18 06:30 Lactic Acid 0.9 MMOL/L (0.7-2.1) 08/11/18 04:20 Calcium 8.0 mg/dL (8.4-10.2) L 08/13/18 06:30 Total Bilirubin 0.4 mg/dl (0.2-1.3) 08/13/18 06:30 AST 41 U/L (14-36) H D 08/13/18 06:30 ALT 43 U/L (9-52) 08/13/18 06:30 Alkaline Phosphatase 86 U/L (38-126) 08/13/18 06:30 Troponin I 0.0150 ng/mL (0.00-0.120) 08/10/18 11:20 Total Protein 6.6 G/DL (6.3-8.2) 08/13/18 06:30 Albumin 3.3 g/dL (3.5-5.0) L 08/13/18 06:30 Globulin 3.3 gm/dL (2.2-3.9) 08/13/18 06:30 Albumin/Globulin Ratio 1.0 (1.0-2.1) 08/13/18 06:30 Amylase 50 U/L (30-110) 08/10/18 11:20 Lipase 176 U/L (23-300) 08/10/18 11:20 Procalcitonin 0.17 NG/ML (0.19-0.49) L 08/10/18 21:37 Venous Blood Potassium 3.9 mmol/L (3.6-5.2) 08/10/18 12:46 Urine Color Yellow (YELLOW) 08/10/18 12:28 Urine Clarity Cloudy (Clear) 08/10/18 12:28 Urine pH 6.0 (5.0-8.0) 08/10/18 12:28 Ur Specific [place] 1.013 (1.003-1.030) 08/10/18 12:28 Urine Protein 100 mg/dL (NEGATIVE) 08/10/18 12:28 Urine Glucose (UA) >=500 mg/dL (Normal) 08/10/18 12:28 Urine Ketones 20 mg/dL (NEGATIVE) 08/10/18 12:28 Urine Blood Moderate (NEGATIVE) 08/10/18 12:28 Urine Nitrate Negative (NEGATIVE) 08/10/18 12:28 Urine Bilirubin Negative (NEGATIVE) 08/10/18 12:28 Urine Urobilinogen 0.2-1.0 mg/dL (0.2-1.0) 08/10/18 12:28 Ur Leukocyte Esterase Neg June/uL (Negative) 08/10/18 12:28 Urine RBC (Auto) 1 /hpf (0-3) 08/10/18 12:28 Urine Microscopic WBC 2 /hpf (0-5) 08/10/18 12:28 Ur Squamous Epith Cells < 1 /hpf (0-5) 08/10/18 12:28 Urine Bacteria Rare (<OCC) 08/10/18 12:28 Hyaline Casts 0-2 /hpf (0-2) 08/10/18 12:28 Influenza Typ A,B (EIA) Negative for flu a/b (NEGATIVE) 08/10/18 18:10 Ur L.pneumophila Ag Negative (NEGATIVE) 08/10/18 18:00 Ur Strep pneumoniae Ag Not detected (Not Detected) 08/10/18 18:34 - Hospital Course Hospital Course: 73 y/o female with PMHx of HTN, DM II, Hyperlipidemia, Asthma, Gout, s/p lumbar laminectomy with L4/L5 fusion presented to the ED 08/10 with complaints of dizziness, cough for several days, urinary retention, and constipation for 6-7 days. Patient reported she has not eaten in 3-4 days due to the constipation.CT chest showed she had bilateral pneumonia B/L lung bases, negative legionella, negative influenza, urine cx negative, procalcitonin low, blood cx no growth at 3 days, mycobacterium cx prelim- no acid fast bacilli. Pt improved after Fluids, Levaquin 750mg, Duoneb, Advair, Promethazine/codeine, Mucinex. Today pt denies fever, cough, chest pain, SOB, SOB on exertion, sputum, pain, nausea, vomiting, diarrhea or constipation. Pt is hemodynamically stable for discharge, saturating at 100% on RA, continue levaquin for 7days total, follow up in clinic 1wk. - Date & Time of H&P Date of H&P: 08/10/18 Time of H&P: 16:31 Discharge Exam - Head Exam Head Exam: ATRAUMATIC, NORMAL INSPECTION, NORMOCEPHALIC - Eye Exam Eye Exam: EOMI, Normal appearance, PERRL - ENT Exam ENT Exam: Mucous Membranes Moist - Respiratory Exam Respiratory Exam: Rales (Scattered Bibasaliar), NORMAL BREATHING PATTERN - Cardiovascular Exam Cardiovascular Exam: RRR, +S1, +S2 - GI/Abdominal Exam GI & Abdominal Exam: Normal Bowel Sounds, Soft - Extremities Exam Extremities exam: normal inspection - Neurological Exam Neurological exam: Alert, Oriented x3 Discharge Plan - Discharge Medications Prescriptions: RX: guaiFENesin [Mucinex LA] 600 mg PO Q12 5 Days #10 tab levoFLOXacin [Levaquin] 750 mg PO DAILY 5 Days #5 tab - Follow Up Plan Condition: STABLE Disposition: HOME/ ROUTINE Patient education suggested?: Yes Instructions: Pneumonia in Adults, Community-Acquired Pneumonia in Adults Additional Instructions: Follow up [facility] with Dr. Hernandez in 1 wk <Aisha Nichols - Last Filed: 08/17/18 16:33> Provider - Provider Date of Admission: 08/10/18 17:09 Attending physician: Dave Hernandez MD Hospital Course - Lab Results Lab Results: Micro Results 08/10/18 13:30 Blood Blood Culture - Final NO GROWTH AFTER 5 DAYS 08/10/18 13:30 Blood Gram Stain - Final TEST NOT PERFORMED 08/10/18 13:00 Blood Blood Culture - Final NO GROWTH AFTER 5 DAYS 08/10/18 13:00 Blood Gram Stain - Final TEST NOT PERFORMED 08/12/18 14:03 Other: Please Indicate Mycobacterial Culture - Preliminary 08/10/18 14:05 Urine,Clean Catch Urine Culture - Final No Growth (<1,000 CFU/ML) Most Recent Lab Values WBC 14.7 K/uL (4.8-10.8) H 08/13/18 06:30 RBC 3.02 Mil/uL (3.80-5.20) L 08/13/18 06:30 Hgb 9.1 g/dL (12.0-16.0) L 08/13/18 06:30 Hct 27.5 % (34.0-47.0) L 08/13/18 06:30 MCV 91.1 fl (81.0-99.0) 08/13/18 06:30 MCH 30.1 pg (27.0-31.0) 08/13/18 06:30 MCHC 33.0 g/dL (33.0-37.0) 08/13/18 06:30 RDW 16.1 % (11.5-14.5) H 08/13/18 06:30 Plt Count 277 K/uL (130-400) 08/13/18 06:30 MPV 10.1 fl (7.2-11.7) 08/13/18 06:30 Neut % (Auto) 75.0 % (50.0-75.0) 08/13/18 06:30 Lymph % (Auto) 11.1 % (20.0-40.0) L 08/13/18 06:30 [place] % (Auto) 13.2 % (0.0-10.0) H 08/13/18 06:30 Eos % (Auto) 0.5 % (0.0-4.0) 08/13/18 06:30 Baso % (Auto) 0.2 % (0.0-2.0) 08/13/18 06:30 Neut # (Auto) 11.1 K/uL (1.8-7.0) H 08/13/18 06:30 Lymph # (Auto) 1.6 K/uL (1.0-4.3) 08/13/18 06:30 [place] # (Auto) 1.9 K/uL (0.0-0.8) H 08/13/18 06:30 Eos # (Auto) 0.1 K/uL (0.0-0.7) 08/13/18 06:30 Baso # (Auto) 0.0 K/uL (0.0-0.2) 08/13/18 06:30 Neutrophils % (Manual) 81 % (42-75) H 08/10/18 11:20 Lymphocytes % (Manual) 7 % (20-50) L 08/10/18 11:20 Monocytes % (Manual) 12 % (0-10) H 08/10/18 11:20 Platelet Estimate Normal (NORMAL) 08/10/18 11:20 Large Platelets Present 08/10/18 11:20 Anisocytosis (manual) Slight 08/10/18 11:20 Macrocytosis (manual) Slight 08/10/18 11:20 Spherocytes Slight 08/10/18 11:20 Tear Drop Cells Slight 08/10/18 11:20 pO2 40 mm/Hg (30-55) 08/10/18 12:46 VBG pH 7.34 (7.32-7.43) 08/10/18 12:46 VBG pCO2 42 mmHg (40-60) 08/10/18 12:46 VBG HCO3 22.0 mmol/L 08/10/18 12:46 VBG Total CO2 24.0 mmol/L (22-28) 08/10/18 12:46 VBG O2 Sat (Calc) 77.7 % (40-65) H 08/10/18 12:46 VBG Base Excess -3.0 mmol/L (0.0-2.0) L 08/10/18 12:46 VBG Potassium 3.9 mmol/L (3.6-5.2) 08/10/18 12:46 Sodium 129.0 mmol/L (132-148) L 08/10/18 12:46 Chloride 95.0 mmol/L (98-107) L 08/10/18 12:46 Glucose 382 mg/dL (65-105) H 08/10/18 12:46 Lactate 1.2 mmol/L (0.7-2.1) 08/10/18 12:46 FiO2 21.0 % 08/10/18 12:46 Sodium 141 mmol/l (132-148) 08/13/18 06:30 Potassium 4.1 MMOL/L (3.6-5.0) 08/13/18 06:30 Chloride 108 mmol/L (98-107) H 08/13/18 06:30 Carbon Dioxide 26 mmol/L (22-30) 08/13/18 06:30 Anion Gap 11 (10-20) 08/13/18 06:30 BUN 21 mg/dl (7-17) H 08/13/18 06:30 Creatinine 1.4 mg/dl (0.7-1.2) H 08/13/18 06:30 Est GFR ( Amer) 45 08/13/18 06:30 Est GFR (Non-Af Amer) 37 08/13/18 06:30 POC Glucose (mg/dL) 83 mg/dL (65-110) 08/13/18 11:09 Random Glucose 173 mg/dL (65-105) H 08/13/18 06:30 Lactic Acid 0.9 MMOL/L (0.7-2.1) 08/11/18 04:20 Calcium 8.0 mg/dL (8.4-10.2) L 08/13/18 06:30 Total Bilirubin 0.4 mg/dl (0.2-1.3) 08/13/18 06:30 AST 41 U/L (14-36) H D 08/13/18 06:30 ALT 43 U/L (9-52) 08/13/18 06:30 Alkaline Phosphatase 86 U/L (38-126) 08/13/18 06:30 Troponin I 0.0150 ng/mL (0.00-0.120) 08/10/18 11:20 Total Protein 6.6 G/DL (6.3-8.2) 08/13/18 06:30 Albumin 3.3 g/dL (3.5-5.0) L 08/13/18 06:30 Globulin 3.3 gm/dL (2.2-3.9) 08/13/18 06:30 Albumin/Globulin Ratio 1.0 (1.0-2.1) 08/13/18 06:30 Amylase 50 U/L (30-110) 08/10/18 11:20 Lipase 176 U/L (23-300) 08/10/18 11:20 Procalcitonin 0.17 NG/ML (0.19-0.49) L 08/10/18 21:37 Venous Blood Potassium 3.9 mmol/L (3.6-5.2) 08/10/18 12:46 Urine Color Yellow (YELLOW) 08/10/18 12:28 Urine Clarity Cloudy (Clear) 08/10/18 12:28 Urine pH 6.0 (5.0-8.0) 08/10/18 12:28 Ur Specific [place] 1.013 (1.003-1.030) 08/10/18 12:28 Urine Protein 100 mg/dL (NEGATIVE) 08/10/18 12:28 Urine Glucose (UA) >=500 mg/dL (Normal) 08/10/18 12:28 Urine Ketones 20 mg/dL (NEGATIVE) 08/10/18 12:28 Urine Blood Moderate (NEGATIVE) 08/10/18 12:28 Urine Nitrate Negative (NEGATIVE) 08/10/18 12:28 Urine Bilirubin Negative (NEGATIVE) 08/10/18 12:28 Urine Urobilinogen 0.2-1.0 mg/dL (0.2-1.0) 08/10/18 12:28 Ur Leukocyte Esterase Neg June/uL (Negative) 08/10/18 12:28 Urine RBC (Auto) 1 /hpf (0-3) 08/10/18 12:28 Urine Microscopic WBC 2 /hpf (0-5) 08/10/18 12:28 Ur Squamous Epith Cells < 1 /hpf (0-5) 08/10/18 12:28 Urine Bacteria Rare (<OCC) 08/10/18 12:28 Hyaline Casts 0-2 /hpf (0-2) 08/10/18 12:28 Influenza Typ A,B (EIA) Negative for flu a/b (NEGATIVE) 08/10/18 18:10 Ur L.pneumophila Ag Negative (NEGATIVE) 08/10/18 18:00 Ur Strep pneumoniae Ag Not detected (Not Detected) 08/10/18 18:34 Attending/Attestation - Attestation I have personally seen and examined this patient.: Yes I have fully participated in the care of the patient.: Yes I have reviewed all pertinent clinical information, including history, physical exam and plan: Yes Notes (Text): 08/17/18 16:33 Agree with findings and plan as above.
[2018-08-13 11:57] VITALS: BP 131/75; PULSE 82; TEMP 97.8
[2018-08-14] MEDS ORDERED: levoFLOXacin 750 MG TAB PO ONE (14:05)
--- NOTE | 2018-08-21 16:30 | PQF ---
PROVIDER RESPONSE TEXT: Patient has BMI of 42 morbidly obese. REVIEWER QUERY TEXT: Clarification of Clinical Diagnostic Findings 2 (two) queries as follows: 1. If in agreement with the BMI of 42.1 :please add the BMI to your next progress note 2. Is there an associated dx. to go along with the BMI:? i.e. Morbid Obesity etc. OR: Disagree OR: Other explanation of clinical finding Listed in the EMR: 5ft 2in 230lb The patient's Clinical Indicators include: xx Query created by: Mariel Law on 08/11/2018 12:56 PM Electronically signed by: Dave Hernandez MD 08/21/2018 4:27 PM
--- NOTE | 2018-08-21 16:30 | PQF ---
PROVIDER RESPONSE TEXT: Patient has a Dx of CKD REVIEWER QUERY TEXT: Clarification of Clinical Diagnostic Findings Please clarify if there is an associated diagnosis to go along with the following chemistry labs: BUN:27->28 Creatinine:1.7->1.6 EST GFR ( Amer):36->38 Est GFR (Non Af Amer): 30-.32 OR: disagree OR: unable to determine H and P: PMHx of HTN, DM II, Hyperlipidemia, Asthma, hypothyroidism, Gout, s/p lumbar laminectomy wit h L4/L5 fusion, hx of DVT is admitted for bilateral pneumonia. --Bilateral Pneumonia -likely CAP -CT chest sig for bilateral pneumonia noted in the bases -s/p vanca nd Levoflaxacin in ED -cont Levofloxacin -duonabc Q6 -follow up sputum cx, legionella and strep --Sepsis -leukocytosis, tachycardia with pneumonia -bcx and ucx pending -cont IV abx cont IVFs -follow up AM labs --HTN -chronic, controlled -hold bp meds for now --IDDM -on insulin at home -last HbA1c 05/2018 10.2 -cont home meds --Asthma -Mild persistent asthma -cont home meds --Hypothyroidism -chronic -cont home meds --Constipation -hold Fesol -start colace and Miralax The patient's Clinical Indicators include: xx Query created by: Mariel Law on 08/11/2018 3:20 PM Electronically signed by: Dave Hernandez MD 08/21/2018 4:27 PM
--- NOTE | 2018-08-23 15:39 | PQF ---
PROVIDER RESPONSE TEXT: Dx of Community acquired pneumonia most common organism is Streptococcus Pneumoniae however this woul d be suspected REVIEWER QUERY TEXT: Pneumonia Specificity Pneumonia is documented in the Medical Record. Please specify the type of pneumonia and the causative organism (includes probable or suspected) Such as: Type: -- Aspiration pneumonia (please also specify the aspirate) - Please indicate if the aspiration is postprocedure -- Bacterial (please document suspected or probable organism) -- Bronchopneumonia (please document suspected or probable organism) -- Interstitial pneumonia -- Organizing pneumonia / BOOP -- Pneumonia with influenza, manpreet flu, or H1N1 flu -- RSV -- Viral -- Other, please specify H and P: PMHx of HTN, DM II, Hyperlipidemia, Asthma, hypothyroidism, Gout, s/p lumbar laminectomy wit h L4/L5 fusion, hx of DVT is admitted for bilateral pneumonia. 1. Bilateral Pneumonia -likely CAP -CT chest sig for bilateral pneumonia noted in the bases -Curb 65- 2; Moderate risk group: 6.8% 30-day mortality -s/p vancand Levoflaxacin in ED -cont Levofloxacin -du onabc Q6 -follow up sputum cx, legionella and strep 2. Sepsis -leukocytosis, tachycardia with pneumonia -bcx and ucx pending -cont IV abx -cont IVFs -fol low up AM labs 3. HTN -chronic, controlled -hold bp meds for now -follow up 4. IDDM -on insulin at home -last HbA1c 05/2018 10.2 -cont home meds -medium coverage insulin 5. Asthma -Mild persistent asthma -cont home meds 6. Hypothyroidism -chronic -cont home meds 7. Constipation -hold Fesol -start colace and Miralax The patient's Clinical Indicators include: - Query created by: Mariel Law on 08/22/2018 7:37 AM Electronically signed by: Dave Hernandez MD 08/23/2018 3:37 PM
--- NOTE | 2018-08-23 15:39 | PQF ---
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 Please specify the disease stage (includes probable or suspected) Such as: -- Chronic kidney disease Stage 1 -- Chronic kidney disease Stage 2 -- Chronic kidney disease Stage 3 -- Chronic kidney disease Stage 4 -- Chronic kidney disease Stage 5 -- Chronic kidney disease Stage 5, requiring dialysis -- End Stage Renal Disease -- Other, please specify BUN:27->28 Creatinine:1.7->1.6 EST GFR ( Amer):36->38 Est GFR (Non Af Amer): 30-.32 Stages are defined by the [employer] as follows: CKD Stage I GFR >= 90 ml / min per 1.73 m2 and persistent albuminuria CKD Stage 2 GFR between 60 and 89 with persistent albuminuria CKD Stage 3 GFR between 30 and 59 CKD Stage 4 GFR between 15 and 29 CKD Stage 5 GFR between <15 or End Stage Renal Disease The patient's Clinical Indicators include: - Query created by: Mariel Law on 08/22/2018 7:40 AM Electronically signed by: Dave Hernandez MD 08/23/2018 3:37 PM
== END 2018-08-13 15:45 | disposition home or self-care (01) | DRG 871 ==
LOC: H.ER 10:02 → H.ERHOLD 17:09 → H.TEL 20:51
PROVIDERS: ADMIT Family Medicine; ATTEND Family Medicine
DX: A41.9 Sepsis, unspecified organism (principal); J18.9 Pneumonia, unspecified organism; J44.0 Chronic obstructive pulmonary disease with (acute) lower respiratory infection; Z68.41 Body mass index [BMI] 40.0-44.9, adult; N17.9 Acute kidney failure, unspecified; I12.9 Hypertensive chronic kidney disease with stage 1 through stage 4 chronic kidney disease, or unspecified chronic kidney disease; E11.22 Type 2 diabetes mellitus with diabetic chronic kidney disease; E11.9 Type 2 diabetes mellitus without complications; E03.9 Hypothyroidism, unspecified; E78.00 Pure hypercholesterolemia, unspecified; E78.5 Hyperlipidemia, unspecified; N18.3 Chronic kidney disease, stage 3 (moderate); J45.30 Mild persistent asthma, uncomplicated; K21.9 Gastro-esophageal reflux disease without esophagitis; K59.00 Constipation, unspecified; Z66 Do not resuscitate; Z79.4 Long term (current) use of insulin; Z79.82 Long term (current) use of aspirin; Z80.3 Family history of malignant neoplasm of breast; Z83.3 Family history of diabetes mellitus; Z86.718 Personal history of other venous thrombosis and embolism; Z87.01 Personal history of pneumonia (recurrent); Z87.891 Personal history of nicotine dependence; Z90.49 Acquired absence of other specified parts of digestive tract; F32.9 Major depressive disorder, single episode, unspecified; J40 Bronchitis, not specified as acute or chronic; M10.9 Gout, unspecified; M19.90 Unspecified osteoarthritis, unspecified site; M25.511 Pain in right shoulder; Z79.899 Other long term (current) drug therapy; R00.0 Tachycardia, unspecified; R33.9 Retention of urine, unspecified; R42 Dizziness and giddiness; E66.01 Morbid (severe) obesity due to excess calories

== ENCOUNTER 2019-02-20 15:57 | Emergency (ER) | payer MEDICARE, MEDICAID ==
[2019-02-20 15:57] VITALS: BMI 39.4
[2019-02-20 15:59] VITALS: PULSE 67; TEMP 98.5
[2019-02-20] MEDS ORDERED: Sodium Chloride 0.9% 50 ML IV ONE (17:07)
[2019-02-20] MEDS ORDERED: Iodixanol 320 MG/ML 100 ML BOTTLE IV ONE (17:07)
[2019-02-20 17:22] LABS: BASO # 0.1 K/uL (0.0-0.2); BASO % 0.5 % (0.0-2.0); EOS % 0.3 % (0.0-4.0); HEMOGLOBIN 12.1 g/dL (12.0-16.0); LYMPH # 2.1 K/uL (1.0-4.3); LYMPH % 18.9 % (20.0-40.0); MEAN CELL VOLUME 91.6 fl (81.0-99.0); MEAN CORPUSCULAR HEMOGLOBIN 29.7 pg (27.0-31.0); MEAN CORPUSCULAR HGB CONC 32.5 g/dL (33.0-37.0); MEAN PLATELET VOLUME 9.3 fl (7.2-11.7); MONO # 1.1 K/uL (0.0-0.8); MONO % 9.8 % (0.0-10.0); NEUT # 7.8 K/uL (1.8-7.0); NEUT % 70.5 % (50.0-75.0); NRBC % 0.1 % (0.0-0.0); RBC 4.06 Mil/uL (3.80-5.20); RED CELL DISTRIBUTION WIDTH 15.8 % (11.5-14.5); WHITE BLOOD COUNT 11.1 K/uL (4.8-10.8)
[2019-02-20 17:24] LABS: VENOUS BLOOD GAS BASE EXCESS 0.8 mmol/L (0.0-2.0); VENOUS BLOOD GAS PCO2 43 mmHg (40-60); VENOUS BLOOD GAS PO2 27 mm/Hg (30-55); VENOUS BLOOD PH 7.39 (7.32-7.43)
--- NOTE | 2019-02-20 17:32 | ED PDOC ---
HPI: SOB/CHF/COPD Time Seen by Provider: 02/20/19 16:23 Chief Complaint (Nursing): Shortness Of Breath Chief Complaint (Provider): Shortness Of Breath History Per: Patient History/Exam Limitations: no limitations Current Symptoms Are (Timing): Still Present Additional Complaint(s): Patient is a 73 year old female with a history of asthma with COPD and wheezing and DVT, who presents to the emergency department complaining of x1 month of worsening shortness of breath. She states she saw her PMD today, who sent her to the ED for a workup. Patient reports that she does have a history of DVTs and over the past month has had swelling of the right upper extremity that extends to her neck. She denies any fever, chest pain, nausea, vomiting or diarrhea. PMD: Dave Hernandez Past Medical History Reviewed: Historical Data, Nursing Documentation, Vital Signs Vital Signs: Last Vital Signs Temp 98.5 F 02/20/19 15:58 Pulse 67 02/20/19 15:58 Resp 16 02/20/19 16:36 BP 171/95 H 02/20/19 15:58 Pulse Ox 98 02/20/19 16:36 Primary Care Provider: Dave Hernandez - Medical History PMH: Arthritis, Asthma, Back Problems, Bronchitis, COPD, Depression, Diabetes (Type II), Fractures (ankle), Gall Bladder Disease (gallstones removal), GERD, HTN, Hypercholesterolemia, Hyperlipidemia, Hypothyroidism, Pneumonia Denies: Alzheimer's Disease, Atrial Fibrillation, Cardia Arrhythmia, CHF, Crohn's Disease, Dementia, Diverticulitis, Emphysema, Gastritis, HIV, Kidney Stones, Migraine, Mitral Valve Prolapse, Multiple Sclerosis, Osteoporosis, Pancreatitis, Parkinson's Disease, Peripheral Edema, Pulmonary Embolism, Chronic Kidney Disease, Rheumatoid Arthritis, Seizures, Sleep Apnea, TIA - Surgical History Surgical History: Back Surgery (laminectomy 2 months [employer]), Cholecystectomy, C- Section Denies: Pacemaker - Family History Family History: States: Unknown Family Hx - Immunization History Hx Tetanus Toxoid Vaccination: No Hx Influenza Vaccination: Yes Hx Pneumococcal Vaccination: No - Home Medications Home Medications: Ambulatory Orders Medication Instructions Recorded Allopurinol [Zyloprim] 100 mg PO DAILY 08/10/18 Budesonide/Formoterol Fumarate 2 puff IH Q12 08/10/18 [Symbicort 80-4.5 Mcg Inhaler] Ergocalciferol (Vitamin D2) 50,000 unit PO Q14D 08/10/18 [Vitamin D2] Insulin Aspart, Recombinant 20 unit SC BRK 08/10/18 [Novolog] Insulin Glargine, Recombina 50 unit SC HS 08/10/18 [Lantus] Levothyroxine [Synthroid] 150 mcg PO DAILY 08/10/18 Losartan [Cozaar] 100 mg PO DAILY 08/10/18 Montelukast [Singulair] 10 mg PO HS 08/10/18 Rosuvastatin Calcium [Crestor] 10 mg PO DAILY 08/10/18 Aspirin [Ecotrin] 81 mg PO DAILY 02/20/19 DULoxetine [Cymbalta] 30 mg PO Q12 02/20/19 Insulin Aspart, Recombinant 20 unit SC HS 02/20/19 [Novolog] Insulin Aspart, Recombinant 30 unit SC DIN 02/20/19 [Novolog] - Allergies Allergies/Adverse Reactions: Allergies Allergy/AdvReac Type Severity Reaction Status Date / Time Penicillins Allergy SHORTNESS Verified 02/20/19 15:59 OF BREATH Review of Systems ROS Statement: Except As Marked, All Systems Reviewed And Found Negative Constitutional: Negative for: Fever Cardiovascular: Negative for: Chest Pain Respiratory: Positive for: Shortness of Breath Gastrointestinal: Negative for: Nausea, Vomiting, Diarrhea Musculoskeletal: Positive for: Other (Right arm swelling extending to the neck) Physical Exam - Reviewed Nursing Documentation Reviewed: Yes Vital Signs Reviewed: Yes - Physical Exam Appears: Positive for: No Acute Distress (obese ) Head Exam: Positive for: ATRAUMATIC, NORMOCEPHALIC Skin: Positive for: Normal Color, Warm, Dry Eye Exam: Positive for: Normal appearance, EOMI, PERRL ENT: Positive for: Normal ENT Inspection Neck: Positive for: Normal, Painless ROM, Supple Cardiovascular/Chest: Positive for: Regular Rate, Rhythm. Negative for: Murmur Respiratory: Positive for: Wheezing (mild wheezing bilaterally ), Other (Full Air entry) Gastrointestinal/Abdominal: Positive for: Normal Exam, Soft. Negative for: Tenderness Back: Positive for: Normal Inspection. Negative for: L CVA Tenderness, R CVA Tenderness, Vertebral Tenderness Extremity: Positive for: Normal ROM, Swelling (to right upper extremity extending to neck line), Other (Lower extremities are bilaterally mildly enlarged; (-) pain on calf sqeeze). Negative for: Pedal Edema, Deformity Neurological/Psych: Positive for: Alert, Oriented. Negative for: Motor/Sensory Deficits - Laboratory Results Result Diagrams: 02/20/19 17:18 02/20/19:18 Lab Results: pO2 27 mm/Hg (30-55) L 02/20/19 17:21 VBG pH 7.39 (7.32-7.43) 02/20/19 17: VBG pCO2 43 mmHg (40-60) 02/20/19 17:21 VBG HCO3 24.3 mmol/L 02/20/19 17:21 VBG Total CO2 27.3 mmol/L (22-28) 02/20/19 17:21 VBG O2 Sat (Calc) 53.7 % (40-65) 02/20/19 17:21 VBG Base Excess 0.8 mmol/L (0.0-2.0) 02/20/19 17:21 VBG Potassium 4.8 mmol/L (3.6-5.2) 02/20/19 17:21 Sodium 140.0 mmol/L (132-148) 02/20/19 17:21 Chloride 106.0 mmol/L (98-107) 02/20/19 17:21 Glucose 177 mg/dL (65-105) H 02/20/19 17:21 Lactate 1.8 mmol/L (0.7-2.1) 02/20/19 17:21 FiO2 21.0 % 02/20/19 17:21 - ECG O2 Sat by Pulse Oximetry: 98 (RA) Pulse Ox Interpretation: Normal Medical Decision Making Medical Decision Making: Time: 1638 A/P: Work up for Pulmonary Embolism. Patient is at a high risk for Wells crit for PE. CT chest, US of RUE, labs, duonebs. Most likely admission and will reassess patient. --CT Angio chest PE protocol --Right upper ext. US --EKG --Venous blood gas --BMP --BNP --Troponin I --Glucose --CBC with differential --PT --PTT --Chest xray Time: 5 --Patient will be admitted. Scribe Attestation: Documented by Jame Diaz, acting as a scribe Rich Tiwari MD. Provider Scribe Attestation: All medical record entries made by the Scribe were at my direction and personally dictated by me. I have reviewed the chart and agree that the record accurately reflects my personal performance of the history, physical exam, medical decision making, and the department course for this patient. I have also personally directed, reviewed, and agree with the discharge instructions and disposition. Disposition - Clinical Impression Clinical Impression: Chr obstructive pulmonary disease w/ acute lower respiratory infxn, Shortness of breath - Patient ED Disposition Is Patient to be Admitted: Yes - Disposition Disposition: Routine/Home Disposition Time: 18:55 Condition: IMPROVED Additional Instructions: Follow up with Dr. Hernandez within one week for re-evaluation. Return to the emergency department immediately if symptoms worsen such as trouble breathing, chest pain, swelling or arms or legs, or other new symptoms. Instructions: Shortness of Breath (Dyspnea) (DC), Exacerbation of COPD (DC) Forms: [employer] (Danish) Print Language: [place]
[2019-02-20 17:36] LABS: BLOOD UREA NITROGEN 28 mg/dl (7-17); CALCIUM 9.7 mg/dL (8.4-10.2); GFR NON-AFRICAN AMERICAN 55
[2019-02-20 17:47] LABS: B-TYPE NATRIURETIC PEPTIDE 222 pg/ml (0-900)
[2019-02-20 18:01] LABS: INR 1.1; PROTHROMBIN TIME 12.6 Seconds (9.8-13.1)
[2019-02-20 18:04] LABS: PARTIAL THROMBOPLASTIN TIME 33.5 Seconds (25.6-37.1)
--- NOTE | 2019-02-20 18:32 | US ---
Right upper extremity ultrasound Indication: right arm swelling, h/o dvt Technique: Duplex ultrasound evaluation of the right upper extremity Comparison: None available Findings: There is normal flow and compressibility of the right brachial, basilic, axillary, and cephalic veins. Right ulna and radial veins appear patent. Normal flow is demonstrated in the right subclavian and internal jugular vein. Impression: No evidence of deep venous thrombosis in the right upper extremity.
[2019-02-20] MEDS ORDERED: Albuterol-Ipratrop 3 mg / 0.5 (3 ml) UD INH STA (18:55)
--- NOTE | 2019-02-20 19:05 | CT ---
Date of service: 02/20/2019 CTA chest PE protocol Indication: r/o PE Technique: Contiguous axial images were obtained through the chest with intravenous contrast enhancement. Sagittal and coronal reconstructions were generated and reviewed. This CT exam was performed using 1 or more of the following dose reduction techniques: Automated exposure control, adjustment of the MAA and/or kV according to patient size, and/or use of iterative reconstruction technique. IV contrast: 72 mL Visipaque 320 IV Radiation dose (DLP): 320.65 MGy-cm. Comparison: Chest x-ray performed 08/10/18 Findings: Visualized portions of the inferior thyroid gland appear unremarkable. The mediastinal and hilar vascular structures appear within normal limits. Cardiomegaly. Dense coronary artery calcifications. Atherosclerotic calcifications of the aorta and branches. No large central or segmental pulmonary embolus evident. No focal consolidation. No pleural effusion. No pneumothorax. No suspicious pulmonary nodules measuring greater than 5 mm. Limited visualized portions of the upper abdomen: Cholecystectomy clips. 7 mm right adrenal gland nodule measures approximately 3 HU consistent with an adenoma. Degenerative changes of the spine. Impression: Cardiomegaly. No large central or segmental pulmonary embolus identified. Limited visualized portions of the upper abdomen: Cholecystectomy clips. 7 mm right adrenal gland nodule measures approximately 3 HU consistent with an adenoma. Additional incidental findings as above.
[2019-02-20] MEDS ORDERED: Albuterol-Ipratrop 3 mg / 0.5 (3 ml) UD ONE (19:23)
[2019-02-20 19:27] VITALS: BP 175/71; RESP 18
--- NOTE | 2019-02-21 08:35 | RAD ---
Date of service: 02/20/2019 HISTORY: possible admission COMPARISON: 08/10/2018 TECHNIQUE: 1 view obtained. FINDINGS: LUNGS: No consolidation. Pulmonary venous congestion suggested. Lung volumes lower limits of normal. PLEURA: No significant pleural effusion identified, no pneumothorax apparent. CARDIOVASCULAR: There is presence of aortic atherosclerotic calcification on x-ray. Mild cardiomegaly. Mild pulmonary venous congestion. No pulmonary vascular congestion. External lead/lines project over each shoulder and central thorax. OSSEOUS STRUCTURES: No significant abnormalities. VISUALIZED UPPER ABDOMEN: Normal. OTHER FINDINGS: None. IMPRESSION: Consolidation mild cardiomegaly. And mild pulmonary venous congestion suspect. No gross effusion appreciated
--- NOTE | 2019-02-21 10:35 | CARD ---
APPROVED REPORT Date of service: 02/20/2019 EKG Measurement Heart [id number] <Conclusion> Normal sinus rhythm Normal ECG
[2019-02-25 12:12] VITALS: O2SAT 98
== END 2019-02-20 19:57 | disposition home or self-care (01) ==
LOC: H.ER 15:57 → H.ERHOLD 16:55 → UNDOADMIN 16:55 → H.ER 19:57
DX: J44.9 Chronic obstructive pulmonary disease, unspecified (principal); R06.02 Shortness of breath; E11.9 Type 2 diabetes mellitus without complications; E03.9 Hypothyroidism, unspecified; I10 Essential (primary) hypertension; Z79.4 Long term (current) use of insulin; Z79.82 Long term (current) use of aspirin; Z79.899 Other long term (current) drug therapy; Z88.0 Allergy status to penicillin; E78.00 Pure hypercholesterolemia, unspecified; Z86.59 Personal history of other mental and behavioral disorders
CPT/HCPCS: 71045; 71275; 80048; 82803; 82948; 83880; 84484; 85025; 85610; 85730; 93005; 93971; 94640; 96374; 99285; J2930; Q9967